=== PATIENT | female | born 2000 | race African-American/Black ===

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

== ENCOUNTER 2018-03-12 10:01 | Emergency (ER) | payer MEDICAID ==
[~2018-03-12] VITALS: Ht 160 cm; Wt 70.5 kg
[2018-03-12 10:04] VITALS: Ht 160 cm; Wt 70.5 kg
[2018-03-12 10:52] LABS: APPEARANCE CLEAR (CLEAR); BILIRUBIN NEGATIVE (NEGATIVE); COLOR YELLOW (YELLOW); GLUCOSE NEGATIVE (NEGATIVE); KETONE NEGATIVE (NEGATIVE); NITRITE POSITIVE (NEGATIVE); PROTEIN TRACE mg/dL (NEGATIVE); UROBILINOGEN NORMAL (NORMAL); WHITE CELLS - URINE OCC /hpf (0-5)
[2018-03-12 10:53] LABS: AMORPHOUS SEDIMENT >1+ /lpf (NONE SEEN); BACTERIA MANY /hpf (NONE SEEN); EPITHELIAL CELLS OCC /hpf (0-5); MUCUS >1+ /lpf (NONE SEEN)
[2018-03-12] MEDS ORDERED: FLAGYL500 MG PO (11:02)
[2018-03-12 12:29] VITALS: BP 170/085
== END 2018-03-12 12:30 | disposition home or self-care (01) ==
LOC: D.ER 10:01
PROVIDERS: Family Medicine
DX: N34.2 Other urethritis (principal)

== ENCOUNTER 2019-05-18 07:29 | Emergency (ER) | payer MEDICAID ==
[~2019-05-18] VITALS: Ht 160 cm; Wt 78.6 kg
[~2019-05-18 07:29] MED LIST: FLAGYL500 MG PO
[2019-05-18 07:34] VITALS: Ht 160 cm; Wt 78.6 kg
[2019-05-18 08:04] LABS: HCG URINE POSITIVE (NEGATIVE)
[2019-05-18 08:22] LABS: APPEARANCE CLEAR (CLEAR); BILIRUBIN NEGATIVE (NEGATIVE); COLOR YELLOW (YELLOW); EPITHELIAL CELLS 0-5 /hpf (0-5); GLUCOSE NEGATIVE (NEGATIVE); KETONE NEGATIVE (NEGATIVE); NITRITE NEGATIVE (NEGATIVE); PROTEIN NEGATIVE (NEGATIVE); RED CELLS - URINE RARE /hpf (0-5); SPECIFIC GRAVITY 1.015 (1.005-1.020); WHITE CELLS - URINE OCC /hpf (NEGATIVE)
[2019-05-18 08:23] LABS: BACTERIA MODERATE /hpf (NEGATIVE); MUCUS <1+ /lpf (NONE SEEN)
[2019-05-18] MEDS ORDERED: KEFLEX500 MG PO (09:37)
[2019-05-18] MEDS ORDERED: MACROBID100 MG PO (09:37)
[2019-05-18 10:06] VITALS: BP 121/65
== END 2019-05-18 10:07 | disposition home or self-care (01) ==
LOC: D.ER 07:29
PROVIDERS: Family Medicine
DX: O26.899 Other specified pregnancy related conditions, unspecified trimester (principal); Z3A.00 Weeks of gestation of pregnancy not specified; R30.0 Dysuria; R35.0 Frequency of micturition; N39.0 Urinary tract infection, site not specified

== ENCOUNTER 2019-06-04 12:16 | Emergency (ER) | payer MEDICAID ==
[~2019-06-04] VITALS: Ht 160 cm; Wt 77.3 kg
[~2019-06-04 12:16] MED LIST changes: +KEFLEX500 MG PO; +MACROBID100 MG PO
[2019-06-04 12:27] VITALS: BP 142/71; Ht 160 cm; Wt 77.3 kg
== END 2019-06-04 13:54 | disposition left against medical advice (07) ==
LOC: D.ER 12:16
DX: O26.891 Other specified pregnancy related conditions, first trimester (principal); Z3A.08 8 weeks gestation of pregnancy; Y04.2XXA Assault by strike against or bumped into by another person, initial encounter

== ENCOUNTER → 2019-12-21 13:31 | Outpatient (CLI) | payer MEDICAID ==
[2019-06-04 12:27] VITALS: BMI 30.1
== END | disposition home or self-care (01) ==
LOC: D.LDO 13:31
PROVIDERS: ATTEND Student in an Organized Health Care Education/Training Program
DX: O26.899 Other specified pregnancy related conditions, unspecified trimester (principal); Z3A.00 Weeks of gestation of pregnancy not specified; R10.9 Unspecified abdominal pain

== ENCOUNTER 2019-12-27 16:30 | Outpatient (CLI) | payer MEDICAID ==
[2019-06-04 12:27] VITALS: BMI 30.1
== END 2019-12-27 18:01 | disposition home or self-care (01) ==
LOC: D.LDO 16:30
PROVIDERS: ATTEND Student in an Organized Health Care Education/Training Program
DX: O36.5990 Maternal care for other known or suspected poor fetal growth, unspecified trimester, not applicable or unspecified (principal); Z3A.00 Weeks of gestation of pregnancy not specified

== ENCOUNTER 2020-01-01 07:02 | Outpatient (CLI) | payer MEDICAID ==
[2019-06-04 12:27] VITALS: BMI 30.1
[2020-01-01 08:03] LABS: SPECIFIC GRAVITY 1.005 (1.005-1.020)
[2020-01-01 08:04] LABS: BILIRUBIN NEGATIVE (NEGATIVE); GLUCOSE NEGATIVE (NEGATIVE); KETONE NEGATIVE (NEGATIVE); NITRITE NEGATIVE (NEGATIVE); UROBILINOGEN NORMAL (NORMAL)
[2020-01-01 08:08] LABS: BACTERIA FEW /hpf (NEGATIVE); EPITHELIAL CELLS 0-5 /hpf (0-5); RED CELLS - URINE 0-5 /hpf (0-5); WHITE CELLS - URINE 0-5 /hpf (NEGATIVE)
== END 2020-01-01 08:45 | disposition home or self-care (01) ==
LOC: D.LDO 07:02
PROVIDERS: ATTEND Obstetrics & Gynecology
DX: O26.899 Other specified pregnancy related conditions, unspecified trimester (principal); Z3A.00 Weeks of gestation of pregnancy not specified; N89.8 Other specified noninflammatory disorders of vagina

== ENCOUNTER 2020-01-03 11:24 | Outpatient (CLI) | payer MEDICAID ==
[2019-06-04 12:27] VITALS: BMI 30.1
== END 2020-01-03 11:37 | disposition home or self-care (01) ==
LOC: D.LDO 11:24
PROVIDERS: ATTEND Obstetrics & Gynecology
DX: O26.893 Other specified pregnancy related conditions, third trimester (principal); Z3A.37 37 weeks gestation of pregnancy

== ENCOUNTER 2020-01-14 05:17 | Inpatient (IN) | payer OTHER ==
[~2020-01-14] VITALS: Ht 160 cm; Wt 89.4 kg
[2020-01-14] VITALS (12 sets, daily range): BP systolic 109–145; BP diastolic 58–81; Ht 160 cm; Wt 89.4 kg
[2020-01-14 06:10] LABS: UDS - AMPHET NEGATIVE QUAL (NEGATIVE); UDS - BARB NEGATIVE QUAL (NEGATIVE); UDS - BENZO NEGATIVE QUAL (NEGATIVE); UDS - COCAINE NEGATIVE QUAL (NEGATIVE); UDS - OPIATE NEGATIVE QUAL (NEGATIVE); UDS - PCP NEGATIVE QUAL (NEGATIVE); UDS - THC POSITIVE QUAL (NEGATIVE)
[2020-01-14 06:22] LABS: BILIRUBIN NEGATIVE (NEGATIVE); GLUCOSE NEGATIVE (NEGATIVE); KETONE NEGATIVE (NEGATIVE); NITRITE NEGATIVE (NEGATIVE); UROBILINOGEN NORMAL (NORMAL)
[2020-01-14 06:22] LABS: HEMATOCRIT 31.7 % (36.0-48.0); HEMOGLOBIN 10.2 g/dL (12-16); MCH 29.7 pg (26.0-34.0); MCHC 32.2 g/dL (31.0-37.0); MCV 92.4 fL (80.0-100.0); MEAN PLATELET VOLUME 10.7 fL (7.4-10.4); RBC 3.43 10x6/uL (4.00-5.40); RDW 12.8 % (11.5-14.5)
[2020-01-14 06:24] LABS: BACTERIA NONE SEEN /hpf (NEGATIVE); EPITHELIAL CELLS 0-5 /hpf (0-5); RED CELLS - URINE OCC /hpf (0-5); WHITE CELLS - URINE RARE /hpf (NEGATIVE)
--- NOTE | 2020-01-14 08:45 | NUR ---
PT TO ROOM FROM PACU, AWAKE, ALERT AND ORIENTED X3. VSS, DENIES ANY NAUSEA OR VOMITING. ABD SOFT BS HYPOACTIVE, DRESSING TO LOWER ABD CLEAN DRY AND INTACT. FUNDUS FIRM MIDLINE 2 FB BELOW UMBILICUS. RUBRA LOCHIA SMALL. ROCHE TO BSD DRAINING YELLOW URINE. SCD' ON BILATERALLY. IV INFUSING TO LEFT HAND WDL.
--- NOTE | 2020-01-14 09:00 | NUR ---
ABD DRESSING CLEAN DRY AND INTACT, FUNDUS FIRM 2 FB BELOW UMBILICUS WITH SCANT RUBRA LOCHIA.
--- NOTE | 2020-01-14 09:30 | NUR ---
ABD SOFT, DRESSING DRY AND INTACT. FUNDUS FIRM ML 2 FB BELOW UMBILICUS, RUBRA LOCHIA SMALL AMOUNT
--- NOTE | 2020-01-14 09:45 | NUR ---
ABD DRESSING DRY AND INTACT. FUNDUS FIRM ML 2FB BELOW UMBILICUS RUBRA LOCHIA SMALL AMOUNT
--- NOTE | 2020-01-14 10:22 | NUR ---
ABD DRESSING DRY AND INTACT, FUNDUS FIRM ML 2 FB BELOW UMBILICUS WITH RUBRA LOCHIA SMALL AMOUNT
--- NOTE | 2020-01-14 10:50 | NUR ---
Pt resting quietly in bed, states pain well managed with fuel cell designer. abd soft dressing dry and intact, bs hypoactive, fundus firm midline 2 fb below umbilicus. lawson to bsed. dashawn care done and chux pad changed with small amount of rubra lochia noted. side rails up x2, call light in reach, encouraged to call for any needs.
--- NOTE | 2020-01-14 14:30 | NUR ---
pt resting quietly in bed, dashawn care done and peripad changed. pt states pain remains well controlled with woven label designer. s/o and at bedside.
--- NOTE | 2020-01-14 18:42 | NUR ---
ROCHE REMOVED WITH 350 CC YELLOW URINE DISCARDED. RENA CARE DONE WITH CLEAN PAD AND PANTIES PLACED. PT STATES PAIN MED EFFECTIVE FOR PAIN CONTROL. INSTRUCTED PT TO CALL FOR ASSIST BEFORE AMBULATING, SHE VOICED UNDERSTANDING. CALL LIGHT IN REACH. SR UP X2,PHONE AT SIDE.
--- NOTE | 2020-01-14 19:00 | NUR ---
BEDSIDE SHIFT REPORT COMPLETED AT THIS TIME.
--- NOTE | 2020-01-14 20:30 | NUR ---
PATIENT AMBULATED TO BATHROOM AND VOIDED WITHOUT INCIDENT. BACK TO BED, NO FURTHER NEEDS IDENTIFIED.
--- NOTE | 2020-01-14 21:58 | NUR ---
PERCOCET 10/325MG PO PER PT REQUEST AND MD ORDERS.
--- NOTE | 2020-01-14 22:00 | NUR ---
shift assessment completed at this time
--- NOTE | 2020-01-14 23:10 | NUR ---
PT LYING IN BED WITH SIGNIFICANT OTHER, NO NEEDS IDENTIFIED. BED REMAINS LOCKED IN LOW POSITION, SIDE RAILS UPX2, CALL HOUSER AND TRAY TABLE IN REACH. WILL CONTINUE TO MONITOR
--- NOTE | 2020-01-15 00:49 | NUR ---
MOTRIN 600MG PO ADMINISTERED AT THIS TIME PER PT REQUEST. SEE EMAR
--- NOTE | 2020-01-15 01:44 | NUR ---
PERCOCET 10/325MG PO PER PT REQUEST AND MD ORDERS. REMAINS IN THE ROOM. SIGNIFICANT OTHER REMAINS IN ROOM FOR SUPPORT. BED REMAINS LOCKED IN LOW POSITION, SIDE RAILS UPX2, CALL HOUSER AND TRAY TABLE IN REACH. WILL CONTINUE TO MONITOR.
--- NOTE | 2020-01-15 04:09 | NUR ---
INFANT RETURNED TO PATIENTS ROOM, PT DENIES NEEDS AT THIS TIME.
--- NOTE | 2020-01-15 05:08 | NUR ---
lab at bedside
[2020-01-15 05:50] LABS: BASOPHILS 0.2 % (0-2); EOSINOPHILS 1.1 % (0-7); HEMOGLOBIN 8.6 g/dL (12-16); IMMATURE GRANULOCYTES 1.4 % (0-5); LYMPHOCYTES 19.7 % (15-50); MCHC 31.9 g/dL (31.0-37.0); MCV 94.1 fL (80.0-100.0); MEAN PLATELET VOLUME 10.4 fL (7.4-10.4); MONOCYTES 8.9 % (2-11); NEUTROPHILS 68.7 % (40-80); PLATELET COUNT 205 10x3/uL (130-400); RBC 2.87 10x6/uL (4.00-5.40); RDW 12.7 % (11.5-14.5); WBC 11.2 10x3/uL (4.8-10.8)
[2020-01-15 06:10] LABS: RAPID PLASMA REAGIN Non Reactive (Non Reactive)
[2020-01-15 07:19] VITALS: BP 133/77
--- NOTE | 2020-01-15 07:19 | NUR ---
[facility] ASSESSMENT COMPLETED, [facility] PT ALERT, ORIENTED X4, VSS, AFEBRILE, RESP EVEN AND UNLABORED, HEART RRR, ABD SOFT AND NON-DISTENDED, FUNDUS FIRM AT U/2 AND MIDLINE, LOW TRANSVERSE ABD DRESSING CDI WITHOUT DRAINAGE NOTED, VOIDING QS WITHOUT DIFFICULTY, REPORTS LOCHIA LIGHT AMOUNT, DENIES CLOTS, NO BM, +FLATUS, MCCALLUM FREELY, AMBULATORY IN ROOM. PT SMILING, INFANT IN ARMS, BONDING WELL WITH . REVIEWED PLAN OF CARE TODAY TO INCLUDE AMBULATION IN HALLS, PAIN MANAGEMENT, SHOWER, AND TO CHANGE LINENS WHEN OOB TO SHOWER, PT STATES UNDERSTANDING, PRN MOTRIN TO BE GIVEN FOR C/O PAIN 4/10 ON NUMERIC PAIN SCALE. MONITOR FOR CHANGE IN CONDITION, CALL LIGHT IN EASY REACH, BED IN LOW POSITION, BED BRAKES ON, SIDE RAILS UP X2.
--- NOTE | 2020-01-15 08:32 | NUR ---
pain reassessment completed, rates pain a 3 out of 10 now on numeric pain scale, resp even and unlabored, denies needs/concerns at present, call light in easy reach, will continue to monitor.
--- NOTE | 2020-01-15 09:10 | NUR ---
ROUNDS COMPLETED, NAD NOTED, REVIEWED PLAN OF CARE, REPORTS FLATUS AND BURPING. ENCOURAGED AMBULATION IN HALLS, STATES UNDERSTANDING AND INTENT TO DO SO AFTER SHOWER TODAY. WILL MONITOR.
--- NOTE | 2020-01-15 10:15 | NUR ---
ROUNDS COMPLETED, DENIES NEEDS/CONCERNS, AMBULATORY IN ROOM, NAD NOTED. CONTINUE TO MONITOR.
[2020-01-15 11:42] VITALS: BP 139/75
--- NOTE | 2020-01-15 11:43 | NUR ---
ROUNDS COMPLETED, PRN PERCOCET GIVEN WITH SIPS WATER FOR C/O PAIN 6 OUT OF 10 ON NUMERIC PAIN SCALE, LINENS CHANGED, PT SHOWERED, VSS. AFEBRILE, NO OTHER NEEDS VOICED AT THIS TIME, INFANT IN ARMS, NAD. WILL CONTINUE TO MONITOR.
--- NOTE | 2020-01-15 12:50 | NUR ---
bp remains elevated 154/94 on retake from 163/90 a few minutes later. states reviewed rationale for blood pressure meds and need for monitoring also discussing implications of non-adherence to medications as ordered, need for follow up after discharge. pt states understanding. will notify dr myrick, on-call physician, with next phone call for patient status update shortly.
--- NOTE | 2020-01-15 13:30 | NUR ---
pt resting with eyes closed, resp even and unlabored, denies sob/chest pain, visual disturbances, epigastric pain, or incisional pain at present. call light in easy reach. continue to monitor.
--- NOTE | 2020-01-15 14:20 | NUR ---
ROUNDS COMPLETED, RESTING IN DIMMED ROOM WITH EYES CLOSED, RESP EVEN AND UNLAORED, ROUSES TO ENTRY TO ROOM, DENIES NEEDS/CONCERNS AT PRESENT, CALL LIGHT IN EASY REACH.
--- NOTE | 2020-01-15 15:11 | NUR ---
ROUNDS COMPLETED, PT LYING RIGHT LATERAL POSITION HOB ELEVATED 20 DEGREES, SIDE RAILS UP X2, NAD IN ROLLING CRIB ADJACENT TO BED. CONTINUE TO MONITOR.
[2020-01-15 15:58] VITALS: BP 121/73
--- NOTE | 2020-01-15 16:30 | NUR ---
rounds completed, rates pain 3/10 on numeric pain scale, denies needs/concerns. nad noted. will continue to monitor.
--- NOTE | 2020-01-15 17:12 | NUR ---
ROUNDS COMPLETED, SITTING UP IN BED WITH IN ARMS, NAD NOTED, WILL CONTINUE TO MONITOR. CALL LIGHT IN EASY REACH.
--- NOTE | 2020-01-15 18:36 | NUR ---
rounds completed, no needs voiced, eating pizza and drinking soda, passing flatus, smiling, nad noted. will monitor.
[2020-01-15 19:34] VITALS: BP 103/46; BP 116/73
--- NOTE | 2020-01-15 19:34 | NUR ---
SHIFT ASSESSMENT COMPLETED. SEE FLOWSHEET.
--- NOTE | 2020-01-15 20:30 | NUR ---
PATIENT RESTING QUIETLY IN BED, NO NEEDS IDENTIFIED. WILL CONTINUE TO MONITOR
--- NOTE | 2020-01-15 21:45 | NUR ---
PERCOCET 10/325MG PO PER PT REQUEST AND MD ORDERS. PT DENIES OTHER NEEDS. BED REMAINS LOCKED IN LOW POSITION, SIDE RAILS UPX2, CALL HOUSER AND TRAY TABLE IN REACH.
--- NOTE | 2020-01-15 22:37 | NUR ---
[facility] AT BEDSIDE DISCUSSING POSITIVE UDS ON ARRIVAL.
--- NOTE | 2020-01-16 00:02 | NUR ---
MOTRIN 600MG PO PER PT REQUEST AND MD ORDERS. SEE EMAR. ICE PACK FILLED, AND CUP OF ICE PROVIDED PER PT REQUEST. NO FURTHER NEEDS IDENTIFIED. WILL CONTINUE TO MONITOR
--- NOTE | 2020-01-16 02:40 | NUR ---
TEE RN TO ROOM TO BRING TO NURSERY, PT DENIES NEEDS AT THIS TIME.
--- NOTE | 2020-01-16 04:10 | NUR ---
PT SLEEPING WITH EVEN RESPIRATIONS, NO DISTRESS NOTED AT THIS TIME. WILL CONTINUE TO MONITOR.
[2020-01-16 07:31] VITALS: BP 105/75
--- NOTE | 2020-01-16 07:31 | NUR ---
RECEIVED PT SITTING UP IN BED. HOLDS INFANT WITH MUCH WARMTH SHOWN. VSS. HRRR WITHOUT AUDIBLE MURMUR. BBS CLEAR. BS X 4. ABDOMEN SOFT/NON-DISTENDED. FUNDUS FIRM AT U/1. RUBRA LOCHIA SMALL AMT. ABDOMINAL INCISION WITH STERISTRIPS. NO REDNESS, SWELLING OR DRAINAGE NOTED TO INCISION. PT STATES PASSING GAS. NO BM YET. NEG HOMANS' SIGN. PPP. NO EDEMA NOTED TO BLE. PT STATES VOIDING WITHOUT DIFFICULTY. C/O INCISIONAL PAIN OF "3" ON 0-10 PAIN SCALE. PT REQUESTING HIGHER DOSE PAIN MED. SR UP X 2. CALL LIGHT IN REACH. FRESH ICE WATER PROVIDED.
--- NOTE | 2020-01-16 07:41 | NUR ---
MOTRIN 600 MG, PERCOCET 10/325 AND MYLICON 80 MG GIVEN PO ORDERED. PT REQUESTS HIGHER DOSE PAIN MED. PT INSTRUCTED ON MEDS. VERBALIZES UNDERSTANDING.
--- NOTE | 2020-01-16 08:15 | NUR ---
PT REQUESTS AND RECEIVES PERIPADS AND PANTIES.
--- NOTE | 2020-01-16 09:24 | NUR ---
PT UP TO SHOWER. LINENS PROVIDED.
--- NOTE | 2020-01-16 10:35 | NUR ---
DR BRIGHT VISITS WITH PT. ORDER RECEIVED TO AL HOME.
[2020-01-16] MEDS ORDERED: PERCOCET 5-3251 TAB PO (11:12)
--- NOTE | 2020-01-16 11:45 | NUR ---
DISCHARGE INSTRUCTIONS GIVEN TO PT. PT VERBALIZES UNDERSTANDING OF ALL INSTRUCTIONS. COPIES GIVEN TO PT. PT GIVEN RX FOR PERCOCET. TDAP 0.5 ML GIVEN IM TO RIGHT DELTOID. BANDAID TO SITE. PT PREPARES FOR DISCHARGE.
--- NOTE | 2020-01-16 12:10 | NUR ---
PT READY FOR DISCHARGE. DISCHARGED IN STABLE CONDITION WITH VIA WHEELCHAIR PER Gissel LOMAX RN TO PRIVATE VEHICLE.
[2020-01-18 13:11] LABS: UDSC - AMPHET Negative ng/mL (Cutoff=1000); UDSC - BARB Negative ng/mL (Cutoff=300); UDSC - BENZO Negative ng/mL (Cutoff=300); UDSC - COC Negative ng/mL (Cutoff=300); UDSC - METH Negative ng/mL (Cutoff=300); UDSC - OPIATES Negative ng/mL (Cutoff=300); UDSC - PCP Negative ng/mL (Cutoff=25); UDSC - PROPOXY Negative ng/mL (Cutoff=300); UDSC - THC Positive (Cutoff=50)
== END 2020-01-16 12:10 | disposition home or self-care (01) | DRG 788 ==
LOC: D.LD 05:17
PROVIDERS: ADMIT Student in an Organized Health Care Education/Training Program; ATTEND Student in an Organized Health Care Education/Training Program
PROC: 10D00Z1 Extraction of Products of Conception, Low, Open Approach (ICD-10-PCS; principal; 2020-01-14 07:00)
DX: O34.212 Maternal care for vertical scar from previous cesarean delivery (principal); Z3A.39 39 weeks gestation of pregnancy; Z37.0 Single live birth